=== PATIENT | female | born 1985 | race American Indian/Alaskan Native ===

== ENCOUNTER 2019-04-22 22:29 | Outpatient (CLI) | payer OTHER ==
[2019-04-22] MEDS ORDERED: PRENATAL TABLE1 EAC1 PO (22:55)
== END 2019-04-23 10:19 | disposition home or self-care (01) ==
LOC: OBS/DEL 22:29
DX: O26.892 Other specified pregnancy related conditions, second trimester (principal); K29.60 Other gastritis without bleeding; Z34.82 Encounter for supervision of other normal pregnancy, second trimester

== ENCOUNTER 2019-07-03 10:46 | Inpatient (IN) | payer OTHER ==
[~2019-07-03] VITALS: Ht 157.5 cm; Wt 3.2 kg
[~2019-07-03 10:46] MED LIST: PRENATAL TABLE1 EAC1 PO
[2019-07-03] MEDS ORDERED: VITAMINA D PO (12:21)
[2019-07-03] MEDS ORDERED: VITAMIN D400 UNI2 (14:11)
== END 2019-07-06 15:26 | disposition home or self-care (01) | DRG 788 ==
LOC: OB/GYN 10:46 → LDR 10:46 → O/R 14:01 → OB/GYN 14:26
PROVIDERS: ADMIT Obstetrics & Gynecology
PROC: 4A1HXCZ Monitoring of Products of Conception, Cardiac Rate, External Approach (ICD-10-PCS; 2019-07-03)
PROC: 4A033R1 Measurement of Arterial Saturation, Peripheral, Percutaneous Approach (ICD-10-PCS; 2019-07-03)
PROC: 10D00Z1 Extraction of Products of Conception, Low, Open Approach (ICD-10-PCS; principal; 2019-07-03 12:45)
DX: O82 Encounter for cesarean delivery without indication (principal); O34.211 Maternal care for low transverse scar from previous cesarean delivery; Z37.0 Single live birth; Z3A.38 38 weeks gestation of pregnancy

== ENCOUNTER → 2023-10-30 | Outpatient (CLI) | payer OTHER ==
[~2023-10-30] MED LIST changes: +VITAMIN D400 UNI2; +VITAMINA D PO
== END | disposition home or self-care (01) ==
LOC: PRENATAL 16:34
PROVIDERS: ATTEND Obstetrics & Gynecology Maternal & Fetal Medicine
DX: Z76.1 Encounter for health supervision and care of foundling (principal)

== ENCOUNTER 2023-11-02 13:48 | Outpatient (CLI) | payer OTHER | END 2023-11-02 13:49 | disposition home or self-care (01) | LOC: PRENATAL 13:48 | PROVIDERS: ATTEND Obstetrics & Gynecology Maternal & Fetal Medicine | DX: O36.80X0 Pregnancy with inconclusive fetal viability, not applicable or unspecified (principal); Z36.82 Encounter for antenatal screening for nuchal translucency; O09.529 Supervision of elderly multigravida, unspecified trimester; O34.219 Maternal care for unspecified type scar from previous cesarean delivery; Z3A.13 13 weeks gestation of pregnancy ==

== ENCOUNTER → 2024-02-11 13:54 | Outpatient (CLI) | payer OTHER | END | disposition home or self-care (01) | LOC: PRENATAL 13:54 | PROVIDERS: ATTEND Obstetrics & Gynecology Maternal & Fetal Medicine | DX: O26.843 Uterine size-date discrepancy, third trimester (principal); O36.8130 Decreased fetal movements, third trimester, not applicable or unspecified; O09.523 Supervision of elderly multigravida, third trimester; O34.219 Maternal care for unspecified type scar from previous cesarean delivery; Z3A.28 28 weeks gestation of pregnancy ==

== ENCOUNTER 2024-03-27 12:47 | Outpatient (CLI) | payer OTHER | END 2024-03-27 12:48 | disposition home or self-care (01) | LOC: PRENATAL 12:47 | PROVIDERS: ATTEND Obstetrics & Gynecology Maternal & Fetal Medicine | DX: O26.843 Uterine size-date discrepancy, third trimester (principal); O36.8130 Decreased fetal movements, third trimester, not applicable or unspecified; O09.523 Supervision of elderly multigravida, third trimester; O34.219 Maternal care for unspecified type scar from previous cesarean delivery; Z3A.34 34 weeks gestation of pregnancy ==

== ENCOUNTER 2024-04-15 17:34 | Inpatient (IN) | payer OTHER ==
[~2024-04-15] VITALS: Ht 160 cm; Wt 2.7 kg
[2024-04-15 16:23] VITALS: BP 101/70
[2024-04-15] MEDS ORDERED: ERYTHROMYCIN BASE 1 GM TUBE OP ONE ×2 (17:57→18:00)
[2024-04-15] MEDS ORDERED: OXYTOCIN 10 UNITS/ML VIAL ONE (17:57)
[2024-04-15] MEDS ORDERED: OXYTOCIN 10 UNITS/ML VIAL IV ONE (18:00)
[2024-04-15] MEDS ORDERED: RINGERS SOLUTION,LACTATED 1,000 ML IV SCH (18:15)
[2024-04-15 18:19] LABS: HEMATOCRIT 36.1 % (36.0-45.00); HEMOGLOBIN 11.9 g/dL (12.0-15.00); MEAN CELL VOLUME 86.2 fL (80.00-100.00); MEAN CORPUSCULAR HEMOGLOBIN 28.4 pg (27.00-32.0); PLATELET COUNT 219 K/uL (150-450); RED BLOOD COUNT 4.18 M/uL (4.00-6.00); RED CELL DISTRIBUTION WIDTH 14.9 % (11.5-14.5)
[2024-04-15 19:19] LABS: INR 1.02; PARTIAL THROMBOPLASTIN TIME 25.6 SECONDS (22.0-34.0); PROTHROMBIN TIME 11.1 SECONDS (9.0-11.5)
[2024-04-15 19:24] LABS: BILIRUBIN TOTAL 0.47 mg/dL (0.3-1.2); CALCIUM 9.5 mg/dL (8.5-10.1); CREATININE SERUM 0.38 mg/dL (0.55-1.02); GFR 191.62; GLOBULINA 4.5 G/DL (2.4-3.5); POTASSIUM 4.28 mEq/L (3.5-5.1); TOTAL PROTEIN 7.5 gm/dL (6.4-8.2)
[2024-04-15] MEDS ORDERED: PROMETHAZINE HCL 50 MG/ML AMPUL IM PRN (20:45)
[2024-04-15] MEDS ORDERED: MEPERIDINE HCL/PF 50 MG/ML VIAL IM PRN (20:45)
[2024-04-15] MEDS ORDERED: MEPERIDINE HCL 25 MG/ML AMPUL IV ONE (21:10)
[2024-04-15] MEDS ORDERED: MORPHINE SULFATE 4 MG/ML VIAL IV ONE ×2 (21:40→22:10)
[2024-04-15] MEDS ORDERED: ONDANSETRON HCL 2 MG/ML VIAL ONE (22:15)
[2024-04-15 22:35] VITALS: BP 118/72
[2024-04-16 00:20] VITALS: BP 116/70
[2024-04-16 06:15] VITALS: BP 128/82
[2024-04-16 06:57] LABS: HEMATOCRIT 30.6 % (36.0-45.00); HEMOGLOBIN 10.1 g/dL (12.0-15.00); MEAN CORPUSCULAR HEMOGLOBIN 28.8 pg (27.00-32.0); MEAN CORPUSCULAR HGB CONC 33.1 g/dl (32.0-36.0); PLATELET COUNT 162 K/uL (150-450); RED BLOOD COUNT 3.52 M/uL (4.00-6.00); RED CELL DISTRIBUTION WIDTH 14.8 % (11.5-14.5)
[2024-04-16] MEDS ORDERED: OxyCODONE HCL/APAP UD (PERCOCET) PO PRN (08:00)
[2024-04-16 08:24] VITALS: BP 119/77; O2SAT 98
[2024-04-16] MEDS ORDERED: SIMETHICONE 125 MG CAPSULE PO SCH (09:00)
[2024-04-16] MEDS ORDERED: DOCUSATE SODIUM 100MG CAP PO SCH (09:00)
[2024-04-16] MEDS ORDERED: PNV,CALCIUM 72/IRON/FOLIC ACID 1 TAB TABLET PO SCH (09:00)
[2024-04-16 11:58] VITALS: BP 116/71
[2024-04-16 15:46] VITALS: BP 113/69
[2024-04-17 01:41] VITALS: BP 100/62
[2024-04-17 08:46] VITALS: BP 112/73
[2024-04-17 11:35] VITALS: BP 112/73
[2024-04-17 16:43] VITALS: BP 115/72
[2024-04-18 03:36] VITALS: BP 114/79
[2024-04-18 09:14] VITALS: BP 139/77
[2024-04-18] MEDS ORDERED: OxyCODONE HCL/APAP UD (PERCOCET) PO PRN (09:15)
== END 2024-04-18 14:31 | disposition home or self-care (01) | DRG 785 ==
LOC: LDR 17:34 → OB/GYN 17:34 → O/R 20:18 → OB/GYN 20:40
PROVIDERS: ADMIT Obstetrics & Gynecology; ATTEND Obstetrics & Gynecology
PROC: 0UB70ZZ Excision of Bilateral Fallopian Tubes, Open Approach (ICD-10-PCS; 2024-04-15)
PROC: 4A1HXCZ Monitoring of Products of Conception, Cardiac Rate, External Approach (ICD-10-PCS; 2024-04-15)
PROC: 10D00Z1 Extraction of Products of Conception, Low, Open Approach (ICD-10-PCS; principal; 2024-04-15 17:00)
DX: O34.211 Maternal care for low transverse scar from previous cesarean delivery (principal); Z3A.37 37 weeks gestation of pregnancy; Z37.0 Single live birth; Z20.822 Contact with and (suspected) exposure to COVID-19; Z30.2 Encounter for sterilization